=== PATIENT | male | born 1985 | race Hispanic/Latino ===

== ENCOUNTER 2024-01-01 16:21 | Emergency (ER) | payer SELFPAY ==
--- NOTE | 2024-01-01 17:35 | RAD REPORT ---
EXAM DESCRIPTION: RAD - Hand Right 3 View - 01/01/2024 5:22 pm CLINICAL HISTORY: Right hand pain status post injury FINDINGS: Comminuted mildly to moderately displaced fracture first proximal phalanx No dislocation seen Laceration third phalanx. Many tiny densities within the soft tissues may indicate foreign bodies
--- NOTE | 2024-01-01 18:31 | ER ---
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 Pt also has laceration to right middle finger. Unknown when last tetanus was. Bleeding controlled. Coronavirus screen: Client denies travel out of the [place] in the last 14 days. At this time, the client does not indicate any symptoms associated with coronavirus-19. Ebola Screen: Patient denies travel to an Ebola-affected area in the 21 days before illness onset. No symptoms or risks identified at this time. Initial Sepsis Screen: Does the patient meet any 2 criteria? No. Patient's initial sepsis screen is negative. Does the patient have a suspected source of infection? No. Patient's initial sepsis screen is negative. Risk Assessment: Do you want to hurt yourself or someone else? Patient reports no desire to harm self or others. Onset of symptoms was January 01, 2024. 16:42 Method Of Arrival: Ambulatory 10 16:42 Acuity: SIMON 3 cm10 Triage Assessment: 16:44 General: Appears in no apparent distress. comfortable, Behavior is calm, cooperative. cm10 Neuro: No deficits noted. Level of Consciousness is awake, alert, obeys commands, Oriented to person, place, time, situation, Appropriate for age. Respiratory: No deficits noted. Airway is patent Respiratory effort is even, unlabored, Respiratory pattern is regular, symmetrical. Injury Description: Laceration sustained to dorsal aspect of proximal phalanx of right thumb is 0.5 to 2.5 cm long, not bleeding, was sustained 1-2 hours ago. a small amount of bleeding noted at this time. Historical: - Allergies: 16:44 No Known Allergies; cm10 - Home Meds: 16:44 None [Active]; cm10 - PMHx: 16:44 None; cm10 - PSHx: 16:44 None; cm10 - Immunization history:: Adult Immunizations not up to date, Last tetanus immunization: unknown. - Infectious Disease History:: Denies. - Social history:: Smoking status: Patient denies any tobacco usage or history of. Screenin:00 [facility] ED Fall Risk Assessment (Adult) History of falling in the last 3 months, nj1 including since admission No falls in past 3 months (0 pts) Confusion or Disorientation No (0 pts) Intoxicated or Sedated No (0 pts) Impaired Gait No (0 pts) Mobility Assist Device Used No (0 pt) Altered Elimination No (0 pt) Score/Fall Risk Level 0 - 2 = Low Risk Oriented to surroundings, Maintained a safe environment, Hourly rounding (assess needs \T\ fall precautionary measures) done. Abuse screen: Denies threats or abuse. Denies injuries from another. Nutritional screening: No deficits noted. Tuberculosis screening: No symptoms or risk factors identified. Assessment: 18:50 General: Appears in no apparent distress. uncomfortable, Behavior is calm, cooperative, nj1 appropriate for age. 18:50 Pain: Complains of pain in right thumb Pain currently is 10 out of 10 on a pain scale. nj1 Neuro: Level of Consciousness is awake, alert, obeys commands, Oriented to person, place, time, situation. Cardiovascular: Patient's skin is warm and dry. Respiratory: Airway is patent Respiratory effort is even, unlabored. Injury Description: Avulsion sustained to dorsal aspect of distal phalanx of right thumb and right thumbnail is Crush injury sustained to right thumb. 20:33 Reassessment: Patient appears in no apparent distress at this time. Patient and/or kj2 family updated on plan of care and expected duration. Pain level reassessed. Patient is alert, oriented x 3, equal unlabored respirations, skin warm/dry/pink. Vital Signs: 16:42 BP 148 / 90; Pulse 74; Resp 18; Temp 98.6; Pulse Ox 100% on R/A; Weight 65.77 kg; cm10 Height 5 ft. 6 in. ; Pain 7/10; 19:20 BP 145 / 81; Pulse 85; Resp 17; Pulse Ox 100% ; Pain 10/10; nj1 20:33 BP 141 / 85; Pulse 78; Resp 20; Temp 98.6; Pulse Ox 100% on R/A; kj2 20:35 Pain 6/10; kj2 16:42 Body Mass Index 23.40 (65.77 kg, 167.64 cm) cm10 16:42 Pain Scale: Adult cm10 19:20 Pain Scale: Adult nj1 20:35 Pain Scale: Adult kj2 ED Course: 16:23 Patient arrived in ED. im 16:37 Odilon Dougherty PA is PHCP. cp 16:37 Hima Sawyer MD is Attending Physician. cp 16:44 Triage completed. cm10 16:45 Arm band placed on Patient placed in waiting room. cm10 17:24 XRAY Hand RIGHT 3 View In Process Unspecified. EDMS 18:26 attempted to initiated a transfer with the [facility]/ placed on eb automatic hold. 18:30 hellen contact for transfer waited on hold for 45mins. eb 18:50 Inserted saline lock: 20 gauge in left antecubital area, using aseptic technique. Blood nj1 collected. Flushed with 10 mL NS. 19:00 Patient has correct armband on for positive identification. Bed in low position. Call nj1 light in reach. Adult w/ patient. Provided Education on: call light, fall precautions. 19:10 called [facility] \T\1903. [place]. kmf 19:10 [facility] decline due to capacity. kmf 19:11 initiated transfer with adiel at [facility]. kmf 19:25 doc to doc with [facility]. [facility] dr recommend passing off to out pt hand trauma. Odilon dougherty kmf requested to try [facility] again. 19:37 initiated transfer with [facility]. kmf 19:45 pt was accepted to [facility] by Dr. Verduzco, C \T\194. AOC given by Jessica Howard. number kmf for nurse to nurse report [phone]. [facility] to transfer pt. EMS on another transfer. 20:16 Diane Kay, RN is Primary Nurse. kj2 21:00 No provider procedures requiring assistance completed. kj2 Administered Medications: 19:20 Drug: NS 0.9% IV 1000 ml IV at 1 bolus Per protocol; 1000 mL bolus Route: IV; Rate: 1 nj1 bolus; Site: left antecubital; 20:20 Follow up: IV Status: Completed infusion; IV Intake: 1000ml kj2 19:22 Drug: morphine IVP or IV 4 mg IVP once over 4 mins Route: IVP; Infused Over: 4 mins; nj1 Site: left antecubital; 20:31 Follow up: Response: No adverse reaction; Pain is decreased kj2 20:35 Follow up: Pain 6/10 Adult; Response: No adverse reaction; Pain is decreased kj2 19:24 Drug: Boostrix Tdap IM 0.5 ml IM once; as a single dose Route: IM; Site: left deltoid; nj1 20:30 Follow up: Response: No adverse reaction kj2 19:26 Drug: ceFAZolin IVPB 1 grams IVPB once Route: IVPB; Site: left antecubital; nj1 19:56 Follow up: Response: No adverse reaction; IV Status: Completed infusion; IV Intake: kj2 100ml 19:26 Drug: Bupivacaine Infiltration (0.5 %) 5 ml 10 ml Infiltration once {Note: Given to Ronny SAWYER for administration.} Volume: 10 ml; Route: Infiltration; 20:30 Follow up: Response: No adverse reaction kj2 19:26 Drug: Lidocaine Infiltration (1 %) 5 ml 5 ml Infiltration once; to bedside {Note: Given nj1 to C Ladonna PA for administration.} Volume: 5 ml; Route: Infiltration; 20:30 Follow up: Response: No adverse reaction kj2 19:27 Not Given (Physician Discretion): hydrocodone-acetaminophen(7.5 mg-325 mg) 1 tabs PO nj1 once; RASS on ADMIN: Combtv4, Very Agttd3, Agttd2, Rstlss1, AlertClm0, Drwsy-1, Lt Sdtn-2, Mod Sdtn-3, Dp Sdtn-4, UnArsble-5 19:29 Not Given (Product Out of Stock): tetanus-diphtheria toxoidadult 0.5 ml IM once; nj1 Provide Vaccine Information Statement (VIS). 20:35 Drug: morphine IVP or IV 4 mg IVP once over 4 mins Route: IVP; Infused Over: 4 mins; kj2 Site: left antecubital; 21:01 Follow up: Response: No adverse reaction; Pain is decreased kj2 Medication: 19:25 Vaccine Information Statement (VIS) provided today. Questions and/or concerns nj1 addressed. VIS edition date: December 25, 2020. Intake: 19:56 IV: 100ml; Total: 100ml. kj2 20:20 IV: 1000ml; Total: 1100ml. kj2 Outcome: 18:31 ER care complete, transfer ordered by . cp 21:00 Patient left the ED. jb4 21:00 Transferred by ground EMS to [facility], Transfer form completed. Note: Eliana palmer RN 21:00 Condition: stable 21:00 Instructed on the need for transfer, Signatures: Dispatcher [employer] EDMS Odilon Dougherty PA PA cp Bryson, James, RN RN jb4 Hellen Hamilton Norma RN RN nj1 Nallely Borjas Clarissa, RN RN cm10 Genna Carrera [facility] Diane Kay, RN RN kj2 Corrections: (The following items were deleted from the chart) 18:58 18:58 Inserted saline lock: 20 gauge in left antecubital area, using aseptic technique. nj1 Blood collected. Flushed with 10 mL NS nj1 01/01 03:14 08 19:44 called [facility]03[facility]
--- NOTE | 2024-01-01 18:31 | EDPHYS ---
Physician Documentation [facility] Name: Monty Garzon Age: 38 yrs Sex: Male : 1985 Arrival Date: 01/01/2024 Time: 16:21 Bed 19 Private MD: ED Physician Hima Sawyer HPI: 12/31 18:00 This 38 yrs old Male presents to ER via Ambulatory with complaints of Finger cp Injury. 18:00 The patient or guardian reports crush injury. cp 18:00 The complaints affect the right hand. Context: The problem was sustained at work, cp resulted from a crush injury, heavy door. Onset: The symptoms/episode began/occurred just prior to arrival. Associated signs and symptoms: The patient has no apparent associated signs or symptoms. Historical: - Allergies: 16:44 No Known Allergies; cm10 - Home Meds: 16:44 None [Active]; cm10 - PMHx: 16:44 None; cm10 - PSHx: 16:44 None; cm10 - Immunization history:: Adult Immunizations not up to date, Last tetanus immunization: unknown. - Infectious Disease History:: Denies. - Social history:: Smoking status: Patient denies any tobacco usage or history of. ROS: 18:05 MS/extremity: Positive for injury or acute deformity, of the right hand, cp 18:05 Constitutional: Negative for fever, cp 18:05 Constitutional: HX per HPI cp 18:05 All other systems are negative, Exam: 18:10 Constitutional: The patient appears in no acute distress, alert, awake, cp non-diaphoretic, non-toxic, well developed, well nourished, uncomfortable, 18:10 Head/Face: Normocephalic, atraumatic. cp 18:10 Eyes: Periorbital structures: appear normal, Conjunctiva: normal, no exudate, no injection, Sclera: no appreciated abnormality, Lids and lashes: appear normal, bilaterally, 18:10 ENT: External ear(s): are unremarkable, Nose: is normal, Mouth: Lips: moist, Oral mucosa: pink and intact, moist, Posterior pharynx: is normal, airway is patent, no erythema, no exudate, 18:10 Chest/axilla: Inspection: normal, 18:10 Cardiovascular: Rate: normal, Rhythm: regular, 18:10 Respiratory: the patient does not display signs of respiratory distress, Respirations: normal, no use of accessory muscles, no retractions, labored breathing, is not present, Breath sounds: are clear throughout, no decreased breath sounds, no stridor, no wheezing, 18:10 Abdomen/GI: Inspection: abdomen appears normal, Palpation: abdomen is soft and non-tender, in all quadrants, 18:10 Musculoskeletal/extremity: Extremities: grossly normal except: noted in the right hand: laceration, deformity inability to flex and extend right thumb, Perfusion: the extremity is warm, with brisk capillary refill, the right thumb Sensation intact. laceration noted dorsal side middle phalanx right middle digit. 18:10 Neuro: Orientation: to person, place \T\ time. Mentation: is normal, Vital Signs: 16:42 BP 148 / 90; Pulse 74; Resp 18; Temp 98.6; Pulse Ox 100% on R/A; Weight 65.77 kg; cm10 Height 5 ft. 6 in. ; Pain 7/10; 19:20 BP 145 / 81; Pulse 85; Resp 17; Pulse Ox 100% ; Pain 10/10; nj1 20:33 BP 141 / 85; Pulse 78; Resp 20; Temp 98.6; Pulse Ox 100% on R/A; kj2 20:35 Pain 6/10; kj2 16:42 Body Mass Index 23.40 (65.77 kg, 167.64 cm) cm10 16:42 Pain Scale: Adult cm10 19:20 Pain Scale: Adult nj1 20:35 Pain Scale: Adult kj2 MDM: 16:48 Patient medically screened. cp 17:50 Data reviewed: vital signs, nurses notes, radiologic studies, plain films, and as a cp result, I will transfer patient. 17:50 Differential diagnosis: dislocation, open fracture, closed fracture, contusion. cp 12/31 17:46 Order name: CBC with Diff; Complete Time: 19:40 cp 12/31 19:40 Interpretation: Normal except: WBC 11.60; JOSE% 79.8; LYM% 14.3; NEUT A 9.3. cp 12/31 17:46 Order name: BMP; Complete Time: 19:40 cp 08 19:40 Interpretation: Normal except: BUN 20; GFR 89. cp 08 17:46 Order name: PT-INR; Complete Time: 19:40 cp 12/31 17:46 Order name: Ptt, Activated; Complete Time: 19:40 cp 12/31 16:50 Order name: XRAY Hand RIGHT 3 View; Complete Time: 17:45 cp 12/31 17:45 Interpretation: Report reviewed. 12/31 17:46 Order name: IV; Complete Time: 19:02 cp 12/31 20:06 Order name: NPO; Complete Time: 20:31 cp Administered Medications: 19:20 Drug: NS 0.9% IV 1000 ml IV at 1 bolus Per protocol; 1000 mL bolus Route: IV; Rate: 1 nj1 bolus; Site: left antecubital; 20:20 Follow up: IV Status: Completed infusion; IV Intake: 1000ml kj2 19:22 Drug: morphine IVP or IV 4 mg IVP once over 4 mins Route: IVP; Infused Over: 4 mins; nj1 Site: left antecubital; 20:31 Follow up: Response: No adverse reaction; Pain is decreased kj2 20:35 Follow up: Pain 6/10 Adult; Response: No adverse reaction; Pain is decreased kj2 19:24 Drug: Boostrix Tdap IM 0.5 ml IM once; as a single dose Route: IM; Site: left deltoid; nj1 20:30 Follow up: Response: No adverse reaction kj2 19:26 Drug: ceFAZolin IVPB 1 grams IVPB once Route: IVPB; Site: left antecubital; nj1 19:56 Follow up: Response: No adverse reaction; IV Status: Completed infusion; IV Intake: kj2 100ml 19:26 Drug: Bupivacaine Infiltration (0.5 %) 5 ml 10 ml Infiltration once {Note: Given to Ronny SAWYER for administration.} Volume: 10 ml; Route: Infiltration; 20:30 Follow up: Response: No adverse reaction kj2 19:26 Drug: Lidocaine Infiltration (1 %) 5 ml 5 ml Infiltration once; to bedside {Note: Given nj1 to Ronny SAWYER for administration.} Volume: 5 ml; Route: Infiltration; 20:30 Follow up: Response: No adverse reaction kj2 19:27 Not Given (Physician Discretion): hydrocodone-acetaminophen(7.5 mg-325 mg) 1 tabs PO nj1 once; RASS on ADMIN: Combtv4, Very Agttd3, Agttd2, Rstlss1, AlertClm0, Drwsy-1, Lt Sdtn-2, Mod Sdtn-3, Dp Sdtn-4, UnArsble-5 19:29 Not Given (Product Out of Stock): tetanus-diphtheria toxoidadult 0.5 ml IM once; nj1 Provide Vaccine Information Statement (VIS). 20:35 Drug: morphine IVP or IV 4 mg IVP once over 4 mins Route: IVP; Infused Over: 4 mins; kj2 Site: left antecubital; 21:01 Follow up: Response: No adverse reaction; Pain is decreased kj2 Disposition Summary: 01/01/24 18:31 Transfer Ordered Notes: Transfer Location: [facility] cp Reason: Higher level of care cp Condition: Stable cp Problem: new cp Symptoms: have improved cp Accepting Physician: DR Martin(01/01/24 21:00) jb4 Diagnosis - Displaced fracture of proximal phalanx of right thumb - open cp - Crushing injury of right hand, initial encounter cp Forms: - Medication Reconciliation Form cp - SBAR form cp Signatures: Dispatcher [employer] EDMS Odilon Dougherty PA PA cp Manish Yang RN RN jb4 Shantal Laird RN RN nj1 Priya Martin, RN RN cm10 Diane Kay, RN RN kj2 Corrections: (The following items were deleted from the chart) 20:05 18:31 Doctor cp cp 21:00 20:05 DR Martin cp jb4
[2024-01-01] MEDS ORDERED: CEFAZOLIN SODIUM 1 GM/VIAL ONE (19:06)
[2024-01-01] MEDS ORDERED: LIDOCAINE 1% MPF 5 ML VIAL ONE (19:06)
[2024-01-01] MEDS ORDERED: BUPIVACAINE 0.5% PF 10 ML VIAL ONE (19:06)
[2024-01-01] MEDS ORDERED: MORPHINE 4 MG/ML SYR ONE ×2 (19:06→20:32)
[2024-01-01] MEDS ORDERED: NA CHLORIDE 0.9% 1,000 ML ONE (19:07)
[2024-01-01] MEDS ORDERED: TDAP (DIPHTH,PERTUSS(ACELL),TET VAC) 0.5 ML VIAL IMVAC ONE (19:07)
[2024-01-01] MEDS ORDERED: NA CHLORIDE 0.9% 100 ML ONE (19:11)
[2024-01-01 19:18] LABS: Absolute Basophils 0.1 K/uL (0-0.5); Absolute Lymphocytes (CBC) 1.7 K/uL (0.7-4.9); Absolute Monocytes 0.6 K/uL (0.1-1.3); Absolute Neutrophil 9.3 K/uL (1.8-8.0); Basophils % 0.4 % (0-1.3); Eosinophils % 0.4 % (0-4.4); Hematocrit 43.1 % (39.6-49.0); Hemoglobin 14.3 g/dL (13.6-17.9); Lymphocytes % 14.3 % (15.3-44.8); MCHC 33.2 g/dL (32.0-36.0); MCV 87.3 fL (80-100); MPV 8.2 fL (7.6-11.3); Monocytes % 5.1 % (3.3-12.3); Neutrophils % 79.8 % (41.7-73.7); Nucleated Red Blood Cells % 0.1 % (0-0); Platelets 281 thou/uL (152-406); RBC Red Blood Cell Count 4.94 M/uL (4.33-5.43); Red Cell Distribution Width 13.5 % (12.1-15.2)
[2024-01-01 19:23] LABS: PT Prothrombin Time 11.9 SECONDS (9.4-12.5); Protime INR 1.06
[2024-01-01 19:24] LABS: Anion Gap 9.7 mEq/L (5.0-15.0); Potassium 3.7 mEq/L (3.5-5.1)
[2024-01-01 21:33] VITALS: TEMP 98.6; O2SAT 100
[2024-01-01 21:35] VITALS: BP 141/85
== END 2024-01-01 21:00 | disposition short-term general hospital (02) ==
LOC: ER 16:21
DX: S62.511B Displaced fracture of proximal phalanx of right thumb, initial encounter for open fracture (principal)
CPT/HCPCS: 36415; 80048; 85025; 85610; 85730; 96365; 96372; 96375; 99285; J0690; J2001; J7030